=== PATIENT | male | born 1975 | race Caucasian/White ===

== ENCOUNTER 2017-05-31 16:08 | Emergency (ER) | payer OTHER ==
[~2017-05-31] VITALS: Ht 182.9 cm; Wt 81.6 kg
[2017-05-31 16:08] VITALS: BP 135/92
[2017-05-31] MEDS ORDERED: IBUPROFEN 600 MG TABLET PO ONE ×2 (17:00→17:06)
[2017-05-31] MEDS ORDERED: LIDOCAINE 2% 20 ML MDV TP ONE (17:00)
[2017-05-31] MEDS ORDERED: HYDROCODONE/APAP 5/325MG 1 EACH TABLET PO ONE (17:00)
[2017-05-31] MEDS ORDERED: HYDROCODONE/APAP 5/325MG 1 EACH TABLET ONE (17:06)
== END 2017-05-31 18:47 | disposition home or self-care (01) ==
LOC: ER 16:14
DX: S01.511A Laceration without foreign body of lip, initial encounter (principal); S63.642A Sprain of metacarpophalangeal joint of left thumb, initial encounter; S20.412A Abrasion of left back wall of thorax, initial encounter; S20.411A Abrasion of right back wall of thorax, initial encounter; Z94.0 Kidney transplant status; V19.9XXA Pedal cyclist (driver) (passenger) injured in unspecified traffic accident, initial encounter; Y93.55 Activity, bike riding; Y92.89 Other specified places as the place of occurrence of the external cause; Y99.8 Other external cause status
CPT/HCPCS: 29125; 40650 ×2; 73130; 99284; A4606; A6402 ×2; J7030; Z7610